=== PATIENT | male | born 2000 | race Caucasian/White ===

== ENCOUNTER 2022-05-22 20:31 | Emergency (ER) | payer BC, SELFPAY ==
--- NOTE | 2022-05-22 20:33 | XRR_ITS ---
PROCEDURE INFORMATION: Exam: XR Chest Exam date and time: 05/22/2022 9:27 PM Age: 22 years old Clinical indication: Shortness of breath; Patient HX: SOB with loss of appetite. Covid +. TECHNIQUE: Imaging protocol: Radiologic exam of the chest. Views: 1 view. COMPARISON: CR Chest 2 views* [id number] 08/18/2015 4:39 PM FINDINGS: Lungs: Unremarkable. No consolidation. Pleural spaces: Unremarkable. No pleural effusion. No pneumothorax. Heart/Mediastinum: Unremarkable. No cardiomegaly. Bones/joints: Unremarkable. XR/XR chest 1V portable [id number] IMPRESSION: No acute findings.
[2022-05-22 20:40] VITALS: BP 114/72; PULSE 134; RESP 18; TEMP 39.2; O2SAT 97; BMI 28.1
--- NOTE | 2022-05-22 21:09 | ED_ITS ---
HPI - Nausea/Vomiting/Diarrhea General: Chief complaint: Nausea/Vomiting/Diarrhea Stated complaint: covid positive , sob Time Seen by Provider: 05/22/22 20:39 Source: patient Mode of arrival: ambulatory Limitations: no limitations History of Present Illness: 22-year-old male states that he tested positive for COVID today and has been around multiple people with COVID. He states he been having fever along with some cough he has been having nausea and vomiting as well and feels like he is dehydrated. He is in no distress here his oxygen level is normal he denies any chest pain states has been having body aches with a fever. Associated nausea: Yes Associated symtoms: Reports nausea; Denies chest pain, dysuria or headache(s) Review of Systems Const: Reports: fever(s), chills and body aches Eyes: Denies: blurry vision or eye discomfort ENMT: Denies: throat pain or dental pain Card: Denies: chest pain Resp: Reports: non-productive cough GI: Reports: nausea and vomiting : Denies: dysuria Musc: Denies: neck pain or back pain Skin/Breast: Denies: rash Neuro: Denies: headache(s) Psych: Denies: depression Elbert/Lymph: Denies: easy bruising All/Imm: Denies: urticaria PFSH ED PFSH: Medical History (Updated 05/22/22 @ 22:00 by Benton Sandoval MD) No pertinent past medical history Social History (Updated 05/22/22 @ 21:10 by Benton Sandoval MD) Substance/Drug Use: never Physical Exam Const: COMMON NORMALS: no acute distress, patient oriented x3 and healthy appearing HENMT: COMMON NORMALS: normocephalic and atraumatic HEAD & SCALP: normocephalic and atraumatic Eye: COMMON NORMALS: Equal, round and reactive pupils present and EOMs intact bilaterally PUPIL: Yes Equal, round and reactive pupils present Neck/C-Spine: COMMON NORMALS: full ROM and supple Chest: COMMONS NORMALS: normal inspection of the chest and normal palpation of entire chest wall Resp: COMMON NORMALS: normal respiratory effort, No retractions, No use of accessory muscles and clear to auscultation bilaterally AUSCULTATION: clear to auscultation bilaterally Cardio: COMMON NORMALS: regular rate, regular rhythm and No murmurs present (Cardio) RATE: regular rate RHYTHM: regular rhythm GI: COMMON NORMALS: Normal to inspection, nondistended, normoactive bowel sounds present, Soft to palpation, non-tender and no masses PALPATION: Yes Soft to palpation Extremity: COMMON NORMALS: normal to inspection and full ROM Neuro: COMMON NORMALS: patient oriented x3, moves all extremities and no focal motor deficits Psych: COMMON NORMALS: mental status grossly normal, Normal thought process present and cooperative THOUGHT PROCESS: Normal thought process present Skin: COMMON NORMALS: no rashes or lesions noted and no wounds GENERAL SKIN EXAM: no rashes or lesions noted Course Vital Signs: Vital signs: Vital Signs Temperature 100.3 F H 05/22/22 21:59 Pulse Rate 119 H 05/22/22 21:59 Respiratory Rate 18 05/22/22 21:59 Blood Pressure 120/78 05/22/22 21:59 Pulse Oximetry 97 05/22/22 21:59 MDM - Nausea/Vomiting/Diarrhea Medical Decision Making Patient presents here with COVID likely causing his fever and vomiting. Exam here is benign he feels improved here after fluids and meds his heart rate and temperature is improved his white count here is normal he has no abdominal pain no abdominal tenderness on exam he has no signs of pneumonia he stable for discharge is to follow-up PCP and return if worsening. Lab Data : 05/22/22 21:14 05/22/22 21:14 Laboratory Results WBC 5.6 10^3/uL (4.0-10.0) 05/22/22 21:14 RBC 5.64 10^6/uL (4.1-5.3) H 05/22/22 21:14 Hgb 15.5 g/dL (11.7-16.6) 05/22/22 21:14 Hct 47.8 % (42.0-52.0) 05/22/22 21:14 MCV 84.8 fl (80-94) 05/22/22 21:14 MCH 27.5 pg (28.0-34.0) L 05/22/22 21:14 MCHC 32.4 g/dL (30.0-36.0) 05/22/22 21:14 RDW 13.2 % (12.1-15.1) 05/22/22 21:14 Plt Count 245 10^3/cmm (130-400) 05/22/22 21:14 MPV 10.4 fL (7.4-10.4) 05/22/22 21:14 Neut % (Auto) 81.7 % 05/22/22 21:14 Lymph % (Auto) 5.2 % 05/22/22 21:14 Gregg % (Auto) 12.0 % 05/22/22 21:14 Eos % (Auto) 0.5 % 05/22/22 21:14 Baso % (Auto) 0.2 % 05/22/22 21:14 Neut # (Auto) 4.55 10^3/uL (1.8-7.7) 05/22/22 21:14 Lymph # (Auto) 0.3 10^3/uL (0.8-4.8) L 05/22/22 21:14 Gregg # (Auto) 0.7 10^3/uL (0.2-0.9) 05/22/22 21:14 Eos # (Auto) 0.0 10^3/uL (0.0-0.8) 05/22/22 21:14 Baso # (Auto) 0.0 10^3/uL (0.0-0.1) 05/22/22 21:14 Nucleated RBC % (auto) 0 % 05/22/22 21:14 Nucleated RBCs # 0.0 /100WBC 05/22/22 21:14 Sodium 134 mmol/L (136-145) L 05/22/22 21:14 Potassium 3.5 mmol/L (3.5-5.1) 05/22/22 21:14 Chloride 98 mmol/L (98-107) 05/22/22 21:14 Carbon Dioxide 26 mmol/L (22-29) 05/22/22 21:14 Anion Gap 13.5 (5-19) 05/22/22 21:14 BUN 18 mg/dL (6-20) 05/22/22 21:14 Creatinine 0.9 mg/dL (0.7-1.2) 05/22/22 21:14 GFR Calculation 105.5 mL/min (90-130) 05/22/22 21:14 Glucose 117 mg/dL (65-115) H 05/22/22 21:14 Calculated Osmolality 281 mOsm/kg (285-295) L 05/22/22 21:14 Calcium 9.3 mg/dL (8.5-10.5) 05/22/22 21:14 Total Bilirubin 0.3 mg/dL (0.15-1.2) 05/22/22 21:14 AST 21 U/L (0-40) 05/22/22 21:14 ALT 33 U/L (0-41) 05/22/22 21:14 Alkaline Phosphatase 92 IU/L (40-130) 05/22/22 21:14 Total Protein 8.0 g/dL (6.6-8.7) 05/22/22 21:14 Albumin 4.7 g/dL (3.5-5.2) 05/22/22 21:14 Globulin 3.3 g/dL (1.3-4.6) 05/22/22 21:14 Lipase 14 U/L (13-60) 05/22/22 21:14 Discharge Plan Discharge Patient Disposition: Home Clinical Impression: COVID-19 Prescriptions: New ondansetron 4 mg tablet,disintegrating 4 mg PO Q6H PRN (Reason: nausea and vomiting) Qty: 14 0RF Discharge Orders: Discharge ED (Routine); Ordered 05/22/22 Ordered By: Benton Sandoval Discharge Diet: Advance as tolerated Discharge Activity: Resume usual activity Patient Instructions: COVID-19 (Coronavirus Disease 2019) (ED) Coding Level of Care Code ED Refinery Operator Visbreaking for Taniya Fwd Exam Comprehensive
[2022-05-22 21:22] VITALS: BP 114/72; PULSE 134; RESP 18; TEMP 39.2; O2SAT 97
[2022-05-22] MEDS: acetaminophen 325 mg Tablet 650 MG PO (21:22)
[2022-05-22] MEDS: ondansetron 2 mg/ML SDV 2 mL 4 MG IVP (21:22)
[2022-05-22] MEDS: sodium chloride 0.9% 1,000 ML 999 ML IV ×2 (21:23→23:33)
[2022-05-22 21:26] LABS: Basophils % 0.2 %; Eosinophils % 0.5 %; Hematocrit 47.8 % (42.0-52.0); Hemoglobin 15.5 g/dL (11.7-16.6); Lymphocytes # 0.3 10^3/uL (0.8-4.8); Lymphocytes % 5.2 %; Mean Corpuscular HGB Conc 32.4 g/dL (30.0-36.0); Mean Corpuscular Hemoglobin 27.5 pg (28.0-34.0); Mean Corpuscular Volume 84.8 fl (80-94); Mean Platelet Volume 10.4 fL (7.4-10.4); Monocytes # 0.7 10^3/uL (0.2-0.9); Neutrophils # 4.55 10^3/uL (1.8-7.7); Neutrophils % 81.7 %; Nucleated Red Blood Cells % 0 %; Platelet Count 245 10^3/cmm (130-400); Red Blood Count 5.64 10^6/uL (4.1-5.3); Red Cell Distribution Width 13.2 % (12.1-15.1); White Blood Count 5.6 10^3/uL (4.0-10.0)
[2022-05-22 21:50] LABS: Alanine Aminotransferase 33 U/L (0-41); Albumin Level 4.7 g/dL (3.5-5.2); Alkaline Phosphatase 92 IU/L (40-130); Anion Gap 13.5 (5-19); Aspartate Amino Transferase 21 U/L (0-40); Blood Urea Nitrogen 18 mg/dL (6-20); Calcium 9.3 mg/dL (8.5-10.5); Carbon Dioxide 26 mmol/L (22-29); Chloride 98 mmol/L (98-107); Globulin 3.3 g/dL (1.3-4.6); Glomerular Filtration Rate 105.5 mL/min (90-130); Glucose 117 mg/dL (65-115); Lipase 14 U/L (13-60); Osmolality Calculated 281 mOsm/kg (285-295); Potassium 3.5 mmol/L (3.5-5.1); Sodium 134 mmol/L (136-145); Total Bilirubin 0.3 mg/dL (0.15-1.2)
[2022-05-22 21:59] VITALS: BP 120/78; PULSE 119; RESP 18; TEMP 37.9; O2SAT 97
[2022-05-22] MEDS: dexamethasone 4 mg/mL INJ 8 MG IVP (22:23)
[2022-05-22] MEDS: morphine 4 mg/mL SDV 1 mL IVP (22:24)
[2022-05-22] MEDS: promethazine 25 mg/mL SDV 1 mL IM (22:24)
[2022-05-22 23:30] VITALS: BP 119/74; PULSE 105; RESP 18; TEMP 37.9; O2SAT 98
== END 2022-05-22 23:33 | disposition home or self-care (01) ==
PROVIDERS: Emergency Provider Emergency Medicine
DX: U07.1 COVID-19 (principal)
CPT/HCPCS: 71045; 80053; 83690; 85025; 96361; 96372; 96374; 96375; 99284; J1100; J2270; J2405; J2550; J7030